=== PATIENT | female | born 1985 | race Caucasian/White ===

== ENCOUNTER 2018-02-22 22:53 | Inpatient (IN) | payer BC ==
[~2018-02-22] VITALS: Ht 177.8 cm; Wt 91.4 kg
[2018-02-22 23:15] VITALS: BP 129/85; PULSE 74; TEMP 98.6
[2018-02-22] MEDS ORDERED: PRENATAL PO (23:20)
[2018-02-22 23:30] VITALS: BP 129/85; PULSE 74; TEMP 98.6
[2018-02-23] VITALS (35 sets, daily range): BP systolic 107–149; BP diastolic 60–90; PULSE 59–96; TEMP 97.8–98.8
[2018-02-23 00:07] LABS: BASO # 0.1 (0.0-0.2); BASO % 0.3 % (0.0-2.0); EOS # 0.1 (0.0-0.7); EOS % 0.7 % (0-4.0); GRAN % 74.6 % (42.2-75.2); HEMATOCRIT 38.2 % (37.0-47.0); HEMOGLOBIN 12.8 g/dl (12.5-16.0); LYMPH # 3.1 (1.2-3.4); LYMPH % 17.7 % (20.0-51.0); MEAN CELL VOLUME 86 fl (80.0-100.0); MEAN CORPUSCULAR HEMOGLOBIN 29 pg (27.0-31.0); MEAN CORPUSCULAR HGB CONC 34 g/dl (33.0-37.0); MEAN PLATELET VOLUME 10.9 fl (7.4-10.4); MONO # 1.1 (0.1-0.6); MONO % 6.1 % (1.7-9.3); PLATELET COUNT 304 K/mm3 (130-400); RED BLOOD COUNT 4.44 M/mm3 (4.10-5.30); REDCELL DISTRIBUTION WIDTH-CV 12.9 % (11.5-14.5)
[2018-02-24 07:56] VITALS: BP 118/72; PULSE 68; TEMP 98.8
[2018-02-24] MEDS ORDERED: IBU600 MG PO (07:57)
[2018-02-24] MEDS ORDERED: PERCOCET 325 MG1 TA2 PO (07:57)
[2018-02-24 08:06] LABS: HEMOGLOBIN 11.2 g/dl (12.5-16.0)
[2018-02-24 08:12] LABS: HEMATOCRIT 33.1 % (37.0-47.0)
== END 2018-02-24 13:41 | disposition home or self-care (01) | DRG 775 ==
LOC: LDRO 22:53 → LDR 23:38 → OB 02-23 11:15
PROVIDERS: Obstetrics & Gynecology
PROC: 10E0XZZ Delivery of Products of Conception, External Approach (ICD-10-PCS; principal; 2018-02-23)
PROC: 0KQM0ZZ Repair Perineum Muscle, Open Approach (ICD-10-PCS; 2018-02-23)
PROC: 0UQJXZZ Repair Clitoris, External Approach (ICD-10-PCS; 2018-02-23)
DX: O70.1 Second degree perineal laceration during delivery (principal); Z37.0 Single live birth; Z3A.38 38 weeks gestation of pregnancy; O70.0 First degree perineal laceration during delivery
CPT/HCPCS: J1200; J2405; J2590; J2795; J7120

== ENCOUNTER → 2019-03-28 | Outpatient (CLI) | payer OTHER ==
[~2019-03-28] MED LIST: IBU600 MG PO; PERCOCET 325 MG1 TA2 PO; PRENATAL PO
== END ==
LOC: COL.RAD 03-17 08:15
DX: E04.1 Nontoxic single thyroid nodule (principal)

== ENCOUNTER → 2019-04-11 | Outpatient (CLI) | payer OTHER ==
[~2019-04-11] VITALS: Ht 177.8 cm; Wt 74.3 kg
[2019-04-11 12:35] VITALS: BP 124/74; PULSE 68
[2019-04-11 13:30] VITALS: BP 120/75; PULSE 65
--- NOTE | 2019-04-11 13:47 | NUR ---
2615 PT AMBULATORY TO LOBBY AND THEN TO HER CAR
== END ==
LOC: COL.RAD 04-08 09:00
DX: E04.1 Nontoxic single thyroid nodule (principal)